=== PATIENT | male | born 1955 | race Caucasian/White ===

== ENCOUNTER 2020-05-21 14:16 | Emergency (ER) | payer OTHER ==
[~2020-05-21] VITALS: Ht 170.2 cm; Wt 102.1 kg
[2020-05-21 14:44] VITALS: BP 177/120
[2020-05-21 15:28] LABS: BASOPHILS # (AUTO) 0.1 K/uL (0.00-0.22); EOSINOPHILS # (AUTO) 0.1 K/uL (0-0.4); EOSINOPHILS % (AUTO) 2.3 % (0.0-4.0); HEMATOCRIT 41.7 % (36-52); HEMOGLOBIN 14.3 g/dL (12.0-18.0); LYMPHOCYTES # (AUTO) 1.4 K/uL (2.0-11.5); LYMPHOCYTES % (AUTO) 23.1 % (20.5-51.1); MEAN CORPUSCULAR HEMOGLOBIN 29 pg (27-31); MEAN CORPUSCULAR HGB CONC 34 g/dL (33-37); MEAN CORPUSCULAR VOLUME 83.5 fL (80-94); MONOCYTES # (AUTO) 0.4 K/uL (0.8-1.0); MONOCYTES % (AUTO) 6.9 % (1.7-9.3); NEUTROPHILS % (AUTO) 66.7 % (42.2-75.2); PLATELET COUNT (AUTO) 215 K/uL (140-450); RED BLOOD CELL COUNT(AUTO) 4.99 MIL/uL (4.20-6.10); RED CELL DISTRIBUTION WIDTH 15.2 % (11.6-13.7); WHITE BLOOD COUNT (AUTO) 5.9 K/uL (4.8-10.8)
[2020-05-21 15:46] LABS: ALBUMIN 4.4 g/dL (3.4-5.0); CARBON DIOXIDE 25.5 mmol/L (21-32); CREATININE 0.9 mg/dL (0.6-1.3); POTASSIUM 3.5 mmol/L (3.5-5.1); TOTAL BILIRUBIN 0.4 mg/dL (0.0-1.0)
[2020-05-21 15:49] LABS: PROTHROMBIN TIME 10.1 secs (10.8-13.4)
--- NOTE | 2020-05-21 19:01 | NUR ---
Patient discharged without paperwork. VSS prior to patient leaving ED
== END 2020-05-21 16:52 | disposition home or self-care (01) ==
LOC: MED 14:16
DX: I16.0 Hypertensive urgency (principal); K76.0 Fatty (change of) liver, not elsewhere classified; E78.5 Hyperlipidemia, unspecified
CPT/HCPCS: 36415; 71045; 80053; 83880; 84484; 85025; 85610; 85730; 93005; 99285

== ENCOUNTER 2020-08-07 13:11 | Inpatient (IN) | payer OTHER, SELFPAY ==
[~2020-08-07] VITALS: Ht 167.6 cm; Wt 94.8 kg
[2020-08-07 13:29] VITALS: BP 124/72
--- NOTE | 2020-08-07 13:35 | NUR ---
patient ambulated to bed 1
--- NOTE | 2020-08-07 13:45 | NUR ---
65 y/o male bib self for covid symptoms since 08/02/20. Patient states that he was tested positive since then. c/o shortness of breath and cough. Generalized body pain at this time, 6/10 in intensity. Able to speak in clear sentences. GCS15, Ambulatory with steady gait. Lung sounds are CTA in bilateral lungs PMH: HTN Medications: Losartan nkda
[2020-08-07 14:02] LABS: BASOPHILS # (AUTO) 0.1 K/uL (0.00-0.22); BASOPHILS % (AUTO) 3.6 % (0.0-2.0); EOSINOPHILS % (AUTO) 0.5 % (0.0-4.0); HEMATOCRIT 39.6 % (36-52); HEMOGLOBIN 13.6 g/dL (12.0-18.0); LYMPHOCYTES # (AUTO) 0.6 K/uL (2.0-11.5); LYMPHOCYTES % (AUTO) 23.9 % (20.5-51.1); MEAN CORPUSCULAR HEMOGLOBIN 27 pg (27-31); MEAN CORPUSCULAR HGB CONC 34 g/dL (33-37); MEAN CORPUSCULAR VOLUME 79.6 fL (80-94); MONOCYTES # (AUTO) 0.2 K/uL (0.8-1.0); MONOCYTES % (AUTO) 6.7 % (1.7-9.3); NEUTROPHILS # (AUTO) 1.6 K/uL (1.8-7.7); NEUTROPHILS % (AUTO) 65.3 % (42.2-75.2); PLATELET COUNT (AUTO) 163 K/uL (140-450); RED BLOOD CELL COUNT(AUTO) 4.98 MIL/uL (4.20-6.10); RED CELL DISTRIBUTION WIDTH 13.6 % (11.6-13.7); WHITE BLOOD COUNT (AUTO) 2.5 K/uL (4.8-10.8)
[2020-08-07 14:14] LABS: ALBUMIN 3.7 g/dL (3.4-5.0); ANION GAP 11.6 (8-16); CARBON DIOXIDE 29.5 mmol/L (21-32); POTASSIUM 3.1 mmol/L (3.5-5.1); TOTAL BILIRUBIN 0.4 mg/dL (0.0-1.0)
[2020-08-07] MEDS ORDERED: AZITHROMYCIN 500 MG in DEXTROSE 5% 250 ML IV ONE (14:20)
[2020-08-07] MEDS ORDERED: DEXAMETHASONE 10 MG/ML VIAL IVP ONE (14:20)
[2020-08-07] MEDS ORDERED: cefTRIAXone 1,000 MG VIAL ONE (14:33)
--- NOTE | 2020-08-07 14:42 | NUR ---
PT SWABBED FOR COVID AND GIVEN TO BACTERIOLOGY TECHNICIAN
[2020-08-07 14:51] LABS: PROTHROMBIN TIME 10.5 secs (10.8-13.4)
[2020-08-07] MEDS ORDERED: CEFTRIAXONE IV SCH (15:00)
[2020-08-07] MEDS ORDERED: DEXTROSE 5% IV SCH (15:00)
--- NOTE | 2020-08-07 15:00 | NUR ---
Patient appears to be resting comfortably in bed. Vital Signs within normal limits. Respirations even and unlabored.
--- NOTE | 2020-08-07 15:08 | NUR ---
CRITICAL LAB: COVID POSITIVE. DR SCHULZ MADE AWARE
[2020-08-07] MEDS ORDERED: AZITHROMYCIN 500 MG INJ VIAL IV ONE (15:13)
--- NOTE | 2020-08-07 15:24 | NUR ---
PT SATTING 89% ON RA. PT PLACED ON 3L VIA NC
[2020-08-07] MEDS ORDERED: MORPHINE SULFATE 2 MG/ML SYR IVP PRN (15:30)
[2020-08-07] MEDS ORDERED: ACETAMINOPHEN 325 MG TAB PO PRN (15:30)
[2020-08-07] MEDS ORDERED: ONDANSETRON 4 MG/2 ML VIAL IVP PRN (15:30)
[2020-08-07] MEDS ORDERED: AZITHROMYCIN 500 MG in DEXTROSE 5% 250 ML IV SCH (15:30)
[2020-08-07] MEDS ORDERED: remdesivir COMMUNICATION ORDER 1 EA MISC MC PRN (15:35)
--- NOTE | 2020-08-07 16:20 | NUR ---
PROVIDED PATIENT WITH WATER WELL URINAL FOR ELIMINATION. VSS. ALL NEEDS MET AT THIS TIME
[2020-08-07 16:32] LABS: CKMB RELATIVE INDEX 2.3 (0.0-2.5); CREATINE KINASE MB 57.9 ng/mL (0-3.6)
[2020-08-07] MEDS ORDERED: LOSA25TA43 PO (17:41)
[2020-08-07] MEDS ORDERED: remdesivir CLINICAL MONITORING 1 EA MISC MC PRN (17:45)
[2020-08-07] MEDS ORDERED: REMDESIVIR (EUA) 200 MG in NACL 0.9% 100 ML IV ONE (17:45)
--- NOTE | 2020-08-07 17:45 | NUR ---
Patient will be admitted to care of [facility]. Admited to [facility]. Will go to room 116. Belongings list completed. Report to BARB SHEPHERD.
[2020-08-07 18:00] VITALS: BP 133/63
--- NOTE | 2020-08-07 18:00 | NUR ---
PATIENT WAS TRANSFERRED TO THE ROOM 116 BY DELVIS. PATIENT AAOX4. IRISH SPEAKING, UNDERSTAND SOME VIETNAMESE. RESPIRATORY EVEN, UNLABORED WITH 3L NC. IV TO RIGHT AC 20G. ABDOMEN ROUND, DISTENDED WITH HERNIA AND FATTY LIVER, PER PATIENT. SKIN WARM TO TOUCH, DRY AND INTACT. CONTINENT WITH BOWEL AND BLADDER. V/S TAKEN, MRSA SWAB COLLECTED. ORIENTED PATIENT WITH THE HOSPITAL ENVIRONMENT, AND CALL LIGHT. SAFETY MEASURES IN PLACE, WILL CONTINUE TO MONITOR.
--- NOTE | 2020-08-07 18:35 | NUR ---
REMDESIVIR GIVEN VIA IVPB, EDUCATION PROVIDED. VERBALIZED UNDERSTANDING. ABD DISTENDED. PATIENT KEPT COMFORTABLE. WILL CONTINUE TO MONITOR.
--- NOTE | 2020-08-07 18:52 | NUR ---
INFORMED DR. HERNANDEZ REGARDING SODIUM LEVEL 128. POTASSIUM 3.1, NO PRN MEDICATIONS OR IVF ORDER. WILL WAIT FOR DR'S RESPONSE.
--- NOTE | 2020-08-07 19:30 | NUR ---
ENDORSED PATIENT TO REPAIRER HANDTOOLS RN FOR CONTINUITY OF CARE, PATIENT IN STABLE CONDITION WITH 3L NC.
[2020-08-07 20:00] VITALS: BP 130/70
--- NOTE | 2020-08-07 20:03 | NUR ---
RCV'D PT ON 2 LN. SPO2 94%. CLEAR BREATH SOUNDS. NO SOB OR DISTRESS NOTED. WILL CONTINUE TO MONITOR.
[2020-08-07] MEDS: APIXABAN 2.5 MG TAB PO SCH (23:00)
--- NOTE | 2020-08-08 | NUR ---
MADE ROUNDS , NO S/X OF ACUTE DISTRESS NOTED . WILLT. TO MONITOR.
--- NOTE | 2020-08-08 04:00 | NUR ---
O2 SAT WNL . NO S/X OF ACUTE DISTRESS NOTED . WILL CONT. TO MONITOR .
[2020-08-08 05:59] LABS: ANION GAP 13.3 (8-16); CARBON DIOXIDE 26.1 mmol/L (21-32); CREATININE 1.1 mg/dL (0.6-1.3); POTASSIUM 3.4 mmol/L (3.5-5.1)
--- NOTE | 2020-08-08 06:00 | NUR ---
NO COMPLAIN MADE . CALL LIGHT / URINAL WITHIN REACH .
[2020-08-08 06:22] LABS: HEMOGLOBIN 12.9 g/dL (12.0-18.0); MEAN CORPUSCULAR VOLUME 79.6 fL (80-94)
[2020-08-08 06:32] LABS: HEMATOCRIT 37.4 % (36-52); MEAN CORPUSCULAR HEMOGLOBIN 28 pg (27-31); MEAN CORPUSCULAR HGB CONC 35 g/dL (33-37); PLATELET COUNT (AUTO) 144 K/uL (140-450); RED BLOOD CELL COUNT(AUTO) 4.69 MIL/uL (4.20-6.10); RED CELL DISTRIBUTION WIDTH 13.6 % (11.6-13.7); WHITE BLOOD COUNT (AUTO) 3.3 K/uL (4.8-10.8)
[2020-08-08 06:33] LABS: BASOPHILS % (AUTO) 0.2 % (0.0-2.0); LYMPHOCYTES # (AUTO) 0.5 K/uL (2.0-11.5); LYMPHOCYTES % (AUTO) 15.6 % (20.5-51.1); MONOCYTES # (AUTO) 0.3 K/uL (0.8-1.0); MONOCYTES % (AUTO) 9.1 % (1.7-9.3); NEUTROPHILS # (AUTO) 2.5 K/uL (1.8-7.7); NEUTROPHILS % (AUTO) 75.1 % (42.2-75.2)
--- NOTE | 2020-08-08 07:40 | NUR ---
ENDORSED - PT - STABLE .
--- NOTE | 2020-08-08 07:42 | NUR ---
RECEIVED REPORT FROM NIGHT NURSE PT IS AAOX4, ON 3LPM NC SATURATION AT 95-96%, AMBULATORY, COMPLAINS OF CONSTIPATION, INTACT IV ON RIGHT AC SALINE LOCK, FOR RT REQUEST, CHEST XRAY RESULTED TO ATELECTASIS/PNA, STARTED ON REMDESIVIR YESTERDAY, ON CARDIAC DIET. SAFETY MEASURES IN PLACE AND CALL LIGHT WITHIN REACH. WILL CONTINUE TO MONITOR.
[2020-08-08 08:00] VITALS: BP 130/70
--- NOTE | 2020-08-08 08:32 | NUR ---
PATIENT HAS BEEN SCREENED AND CATEGORIZED MODERATE NUTRITION RISK. PATIENT WILL BE SEEN WITHIN 3-5 DAYS OF ADMISSION. 08/10/20 08/12/[address]
[2020-08-08] MEDS ORDERED: DEXAMETHASONE 4 MG/ML VIAL IVP ONE (09:00)
[2020-08-08] MEDS: APIXABAN 2.5 MG TAB PO SCH ×2 (09:09→22:26)
--- NOTE | 2020-08-08 09:09 | NUR ---
SCHEDULED MEDICATION GIVEN ABLE TO TOLERATE WELL AND CHECK VITAL SIGNS BP 133/76 AK 91.
--- NOTE | 2020-08-08 10:33 | NUR ---
PATIENT POTASSIUM LEVEL 3.4 DR HERNANDEZ AWARE AND RECEIVED ORDER OF POTASSIUM CHLORIDE 40 VANI PO ONCE.
--- NOTE | 2020-08-08 10:41 | NUR ---
SOCIAL WORK NOTE: Patient's Orientation Unable To Assess Information Provided By PIYUSH REYES - DAUGHTER Comments SW WAS UNABLE TO MEET PATIENT AT BEDSIDE. SW COMPLETED ASSESSMENT WITH PATIENT'S DAUGHTER. Star Route Mail Driver, Realtionship and Phone Number PIYUSH REYES DAUGHTER [phone] [facility] Power of Glost Kiln Operator No Does Patient Have a POLST No Identifying Problems No Social Work Triggers Is A Social Work Consult Needed No Mandate Report Filed No Explanation Of Identifying Problems PATIENT IS A 65-YEAR-OLD MALE ADMITTED FOR COVID. PATIENT HAS PMHX OF HYPERTENSION, HIGH CHOLESTEROL, AND FATTY LIVER DISEASE. PER DAUGHTER, PATIENT HAS NO HX OF MENTAL HEALTH OR SUBSTANCE ABUSE. Admitted From Home Pre-Admission Level Of Functioning Status Independent/Ambulatory Prior Resources/Services Used In Last 12 Months No Prior Resources Used Prior DME No Prior DME Used Dialysis Comments N/A Living Situation Lives With Family House Patient Had Caregiver No Home Support No Caregiver Issues Financial Issues No Known Financial Issue Referral To The Financial Counselor Needed No Factors/Needs No D/C Needs Identified Pt/Rep Participated In Discharge Plan Yes Patient/Family Agress With Discharge Plan Yes Discharge Plan Comments TENTATIVE DISCHARGE PLAN IS FOR PATIENT TO RETURN HOME. DC Plan Status Initiated
--- NOTE | 2020-08-08 10:45 | NUR ---
K DUR GIVEN AND ABLE TO TOLERATE WELL.
[2020-08-08] MEDS ORDERED: POTASSIUM CHLORIDE 10 MEQ TABER PO SCH (11:00)
--- NOTE | 2020-08-08 12:41 | NUR ---
DC CONSULTING PROJECT DIRECTOR: CALLED TO SCHEDULE PATIENT A FOLLOW UP APPOINTMENT WITH PCP CASSIE BAZZI [phone] THE LEGAL SUPPORT MANAGER STATED THAT THEY DO NOT MAKE APPOINTMENTS THEY TAKE WALK INS Addendum: 08/09/20 at 1135 by Mayela Izquierdo RN DC PLANNIN YRS OLD MALE PATIENT WAS ADMITTED FROM HOME WITH A DX OF COVID POSITIVE . PT HAS A HX OF HLD AND HYPERTENSION. CXR SHOWED BIBASILAR OMASITIS. PCR IS POSITIVE. STARTED REMDESIVIR IV ROCEPHIN AND AZITHROMYCIN IV ABX. ON O2 4L/NC SATING 96%. CONSULTED WITH ID. DC PLAN TO GO HOME WHEN STABLE CM TO FOLLOW Addendum: 08/12/20 at 1117 by Mayela Izquierdo RN DC PLANNING: PT HAS A HOME O2 ORDER FAXED TO [employer] AND [facility]. PER PT NOTES PT DE SAT TO 82% ON ACTIVITIES AND AT REST 87% ON ROOM AIR. CURRENTLY PT IS ON 10L/NC SATING 93%. CM TO FOLLOW Addendum: 08/12/20 at 1201 by Alexandre BUTCHER RANDY FAXED PHYSICIANS ORDER FOR HOME O2 TO [facility]. RANDY SPOKE TO ALISA FROM [facility] [phone]. PER ALISA SHE IS UNABLE TO PROVIDE AUTHORIZATION UNTIL SHE HAS FIRM PLAN OF DISCHARGE. PATIENT ALSO DOES NOT QUALIFY FOR HOME O2 AT THIS TIME. RANDY WILL FOLLOW UP. Addendum: 08/14/20 at 1059 by Bianca Khanna CM JENN NOLASCO: FAXED HOME 02 TO [facility] WILL FOLLOW UP. Addendum: 08/14/20 at 1108 by Bianca Khnana CM JENN NOLASCO: SPOKE TO TERRELL PICKETT FROM [facility] [phone] SHE ASKED THAT I SEND THE ORDER TO [facility] [phone]. PIYUSH PROVIDED AUTH FOR HOME OXYGEN [id number] Addendum: 08/19/20 at 1530 by Alexandre BUTCHER RANDY CONTACTED [facility] [phone] REGARDING HOME O2. RANDY SPOKE WITH LEONEL FROM [facility] REGARDING RX THAT WAS FAXED. LEONEL STATED THAT RX WAS RECEIVED AND THAT HOME O2 WOULD BE DELIVERED TO [facility]. LEONEL STATED SHE WOULD DELIVER HOME O2 TO [facility] AND CONTACT FAMILY TO DELIVER HOME O2 TO HOME. Addendum: 08/19/20 at 1535 by Alexandre Barrera SS SW SPOKE WITH LEONEL WHO STATED THAT ETA FOR HOME O2 WOULD BE DELIVERED FROM 4PM-8PM TO [facility] AND FROM 5PM-9PM TO HOME. Addendum: 08/20/20 at 1048 by Mayela Izquierdo RN DC PLANNING: PT IS ON 3L/NC SATING 93%. HOME O2 AT THE BED SIDE DELIVERED FROM [facility]. DC PLAN TO GO HOME TODAY, AWAITING FOR DC ORDER. CM TO FOLLOW
--- NOTE | 2020-08-08 15:20 | NUR ---
SCHEDULED MEDICATION GIVEN CEFTRIAXONE 50 ML AT 100 MLS.
[2020-08-08 16:00] VITALS: BP 112/60
[2020-08-08] MEDS: AZITHROMYCIN 500 MG in DEXTROSE 5% 250 ML IV SCH (16:16)
--- NOTE | 2020-08-08 17:00 | NUR ---
MEDICATION DUE GIVEN INFUSING WELL
[2020-08-08] MEDS: REMDESIVIR (EUA) 100 MG in NACL 0.9% 100 ML IV SCH (17:49)
--- NOTE | 2020-08-08 18:49 | NUR ---
RCV'D PT ON 3 L NC. PT OXYGEN WAS 88%. PT WAS EATING AND TALKING. INCREASED OXYGEN TO 4 L NC. AND SHOWED PT HOW TO TAKE DEEP BREATH FROM HIS NOSE. PT DEMONSTRATED UNDERSTANDING BREATHING EXERCISES TO INCREASE HIS SPO2. NO SOB OR DISTRESS NOTED. RN AWARE. WILL CONTINUE TO MONITOR.
--- NOTE | 2020-08-08 19:30 | NUR ---
RECEIVED REPORT AT BEDSIDE FOR CONTINUITY OF CARE, PT IN STABLE CONDITION.
--- NOTE | 2020-08-08 19:39 | NUR ---
ENDORSED TO NIGHT NURSE FOR CONTINUITY OF CARE.PT IS STABLE
--- NOTE | 2020-08-08 20:00 | NUR ---
PT IN BED AOX4 IN BED WITH 4 LITERS VIA 02. PT HAS INTERMITTENT COUGH AND LUNG SOUNDS DIMINISHED. 02 STAT IS 96% OTHER V/S FOLLOWS: T 98.1 P 79 R 18 B/P 114/69. PT HAS RAC RUNNING NORMAL SALINE TO KVO. ALL ORDERED PRECAUTIONS IN PLACE.
--- NOTE | 2020-08-08 21:00 | NUR ---
SPOKE WITH PT AND WITH PIYUSH DAUGHTER ON THE PHONE REGARDING PT CONCERNS/REQUESTS. PT SITTING UP IN BED ON 4 LITERS 02 VIA N/C. PT HAS EXTENSION FOR 02 . PT ABLE TO AMBULATE TO THE BATHROOM AND BACK WITH A STEADY GAIT. PT HAS RAC 20G. RUNNING N/S TO KVO. EDUCATION REGARDING COVID DX AND MEDICATIONS ORDERED EXPLAINED AT BEDSIDE TO PT AND DAUGHTER OVER THE PHONE. PT VERBALIZED UNDERSTANDING. PT RECEIVED ORDERED ELIQUIS PURPOSE AND SIDE EFFECTS EXPLAINED AT BEDSIDE, PT VERBALIZED UNDERSTANDING. ALL ORDERED PRECAUTIONS IN PLACE.
--- NOTE | 2020-08-08 22:30 | NUR ---
PT DAUGHTER PIYUSH CONCERNED THAT PT NOT EATING ENOUGH AND DROPPED OFF FOOD IN LOBBY FOOD WHICH WAS BROUGHT TO BEDSIDE. PT ALSO GIVEN REQUESTED ENSURE DUE TO LACK OF APPETITE.
--- NOTE | 2020-08-09 | NUR ---
PT IN BED RESTING WITH EYES CLOSED 02 IS 91% ON 4 LITERS N/C. ALL ORDERED PRECAUTIONS IN PLACE.
--- NOTE | 2020-08-09 04:00 | NUR ---
PT IN AOX4 SITTING UP. PT CONTINUES ON 4 LITERS VIA N/C. V/S FOLLOWS: T 97.9 P 68 R 20 B/P 125/75 02 90% ON ROOM AIR. ALL ORDERED PRECAUTIONS IN PLACE.
[2020-08-09 07:08] LABS: ALBUMIN 3.2 g/dL (3.4-5.0); CARBON DIOXIDE 25.5 mmol/L (21-32); POTASSIUM 3.5 mmol/L (3.5-5.1); TOTAL BILIRUBIN 0.4 mg/dL (0.0-1.0)
--- NOTE | 2020-08-09 07:37 | NUR ---
PT RECEIVED FROM MANUFACTURING ELECTRICIAN RN. PT IS SITTING ON EDGE OF BED RESTING. NO S/S OF DISTRESS AT THIS TIME. WILL CONTINUE TO MONITOR.
[2020-08-09 08:00] VITALS: BP 123/72
[2020-08-09] MEDS: APIXABAN 2.5 MG TAB PO SCH ×2 (08:46→21:31)
--- NOTE | 2020-08-09 08:50 | NUR ---
NEW IV STARTED ON LEFT AC, PT TOLERATED WELL. NO SIGNS OR SYMPTOMS OF DISTRESS. WILL CONTINUE TO MONITOR.
--- NOTE | 2020-08-09 09:20 | NUR ---
MEDICATIONS GIVEN PER MD ORDER. PT EDUCATED. PT VERBALIZED UNDERSTANDING. PT TOLERATED WELL. NO S/S OF DISTRESS AT THIS TIME. CALL LIGHT IS WITHIN REACH. ALL SAFETY MEASURES ARE IN PLACE. WILL CONTINUE TO MONITOR.
--- NOTE | 2020-08-09 09:40 | NUR ---
PT IS SITTING IN BED EATING BREAKFAST. PT TOLERATING WELL. NO S/S OF DISTRESS AT THIS TIME. CALL LIGHT IS WITHIN REACH. ALL SAFETY MEASURES ARE IN PLACE. WILL CONTINUE TO MONITOR.
--- NOTE | 2020-08-09 11:30 | NUR ---
PT AMBULATED TO RESTROOM NO S/S OF DISTRESS. PT AMBULATED BACK TO BED. PT TOLERATED WELL.
--- NOTE | 2020-08-09 13:42 | NUR ---
DAUGHTER CALLED. PT UPDATES WERE GIVEN. DAUGHTER VERBALIZED UNDERSTANDING.PT IS EATING . PT TOLERATING WELL. NO S/S OF DISTRESS AT THIS TIME. CALL LIGHT IS WITHIN REACH. ALL SAFETY MEASURES ARE IN PLACE. WILL CONTINUE TO MONITOR.
[2020-08-09] MEDS: AZITHROMYCIN 500 MG in DEXTROSE 5% 250 ML IV SCH (16:27)
--- NOTE | 2020-08-09 17:20 | NUR ---
PT RESTING IN BED WATCHING TV. MEDICATIONS GIVEN PER MD ORDER. PT EDUCATED. PT VERBALIZED UNDERSTANDING. PT TOLERATED WELL. NO S/S OF DISTRESS AT THIS TIME. CALL LIGHT IS WITHIN REACH. ALL SAFETY MEASURES ARE IN PLACE. WILL CONTINUE TO MONITOR.
[2020-08-09] MEDS: REMDESIVIR (EUA) 100 MG in NACL 0.9% 100 ML IV SCH (17:29)
--- NOTE | 2020-08-09 19:20 | NUR ---
PT ENDORSED TO OPTICAL ENGINEERING MANAGER RN FOR CONTINUITY OF CARE.
--- NOTE | 2020-08-09 19:21 | NUR ---
RECEIVED BEDSIDE ENDORSEMENT FROM AM SHIFT RN. PT IS AAOX4 ON 4L NASAL CANNULA, O2 SAT 89%-90%, AMBULATORY, SAFETY MEASURES IN PLACE, ISO PRECAUTION OBSERVED, PLAN OF CARE DISCUSSED, CALL LIGHT WITHIN REACH.
[2020-08-09 20:00] VITALS: BP 120/70
--- NOTE | 2020-08-09 21:31 | NUR ---
DUE MEDS GIVEN ORDERED, TOLERATED WELL, NO DISTRESS, NO SOB, WARM BLANKET GIVEN TO PT. KEPT COMFORTABLE. CALL LIGHT WITHIN REACH.
--- NOTE | 2020-08-10 | NUR ---
ASLEEP, RESPIRATION EVEN AND UNLABORED.
--- NOTE | 2020-08-10 02:15 | NUR ---
PT WENT TO THE RESTROOM. NO SOB, WILL CONTINUE TO MONITOR.
--- NOTE | 2020-08-10 04:30 | NUR ---
ON PRONE POSITION. NO DISTRESS, CALL LIGHT WITHIN REACH. 113/51. 91, 94%, 99.6, 20.
[2020-08-10 07:09] LABS: ALBUMIN 3.6 g/dL (3.4-5.0); ANION GAP 13.6 (8-16); CREATININE 1.2 mg/dL (0.6-1.3); POTASSIUM 3.6 mmol/L (3.5-5.1); TOTAL BILIRUBIN 0.4 mg/dL (0.0-1.0)
--- NOTE | 2020-08-10 07:36 | NUR ---
RECEIVED REPORT FROM NIGHT NURSE FOR CONTINUITY OF CARE. PT ON 4L NC. PT ASLEEP, NO SIGNS OF DISTRESS NOTED. PT HAS RAC 24G SALINE LOCK. PT ON DROPLET AND ENHANCED PRECAUTION. SAFETY MEASURES IN PLACE, WILL CONTINUE TO MONITOR.
--- NOTE | 2020-08-10 07:37 | NUR ---
PT STABLE, NO DISTRESS, ALL NEEDS ATTENDED, KEPT COMFORTABLE, BEDSIDE ENDORSEMENT GIVEN TO AM SHIFT RN.
[2020-08-10 08:00] VITALS: BP 118/69
[2020-08-10] MEDS: APIXABAN 2.5 MG TAB PO SCH ×2 (09:20→21:13)
--- NOTE | 2020-08-10 09:26 | NUR ---
ADMINISTERED SCHEDULED MEDICATION, MEDICATION EDUCATION PROVIDED. PT TOLERATED OK. INCREASED OXYGEN TO 6L AND NOTIFIED RT TO COME ASSES. WILL CONTINUE TO MONITOR
--- NOTE | 2020-08-10 11:27 | NUR ---
PT SITTING IN BED, NO SIGNS OF DISTRESS NOTED, WILL CONTINUE TO MONITOR.
--- NOTE | 2020-08-10 15:43 | NUR ---
ADMINISTERED SCHEDULED MEDICATION, MEDICATION EDUCATION PROVIDED. STARTED NEW IV LINE ON RIGHT WRIST 24G, WILL CONTINUE TO MONITOR.
[2020-08-10] MEDS ORDERED: NACL 0.9% 1,000 ML IV ONE (15:55)
[2020-08-10 16:00] VITALS: BP 110/64
[2020-08-10] MEDS: AZITHROMYCIN 500 MG in DEXTROSE 5% 250 ML IV SCH (16:18)
--- NOTE | 2020-08-10 16:21 | NUR ---
ADMINISTERED SCHEDULED MEDICATION, MEDICATION EDUCATION PROVIDED. PT TOLERATED WELL. PT IS STABLE, WILL CONTINUE TO MONITOR.
[2020-08-10] MEDS: REMDESIVIR (EUA) 100 MG in NACL 0.9% 100 ML IV SCH (17:37)
--- NOTE | 2020-08-10 17:40 | NUR ---
ADMINISTERED SCHEDULED MEDICATION, MEDICAITON EDUCATION PROVIDED. PT IS TOLERATING WELL. WILL CONTINUE TO MONITOR.
--- NOTE | 2020-08-10 18:42 | NUR ---
ADMINISTERED SCHEDULED FLUIDS, EDUCATION PROVIDED. PT TOLERATED WELL. WILL CONTINUE TO MONITOR.
--- NOTE | 2020-08-10 19:00 | NUR ---
ENDORSE PT TO NIGHT NURSE FOR CONTINUITY OF CARE.
--- NOTE | 2020-08-10 19:01 | NUR ---
RECEIVED BEDSIDE ENDORSEMENT FROM AM SHIFT RN. PT IS AOX4, ON 4L NASAL CANNULA, NO DISTRESS, DENIES PAIN, AMBULATORY W/O ASSIST. ISO PRECAUTION IN PLACE, SAFETY MEASURES IN PLACE, PLAN OF CARE DISCUSSED, CALL LIGHT WITHIN REACH.
--- NOTE | 2020-08-10 21:13 | NUR ---
PT AWAKE, SITTING ON BED, DUE MEDS GIVEN ORDERED, TOLERATED WELL, NO SOB, CALL LIGHT WITHIN REACH.
--- NOTE | 2020-08-10 23:30 | NUR ---
PT ASLEEP, RESPIRATION EVEN AND UNLABORED, PT TURNED ON HIS LEFT SIDE, CALL LIGHT WITHIN REACH.
--- NOTE | 2020-08-11 01:59 | NUR ---
PT ON HIS RIGHT SIDE LYING POSITION, O2 SAT 95%, CALL LIGHT WITHIN REACH.
--- NOTE | 2020-08-11 04:00 | NUR ---
V/S TAKEN AND RECORDED, KEPT COMFORTABLE AND WARM, CALL LIGHT WITHIN REACH.
[2020-08-11 06:48] LABS: ANION GAP 12.3 (8-16); CARBON DIOXIDE 26.1 mmol/L (21-32); CREATININE 0.9 mg/dL (0.6-1.3); POTASSIUM 3.4 mmol/L (3.5-5.1); TOTAL BILIRUBIN 0.5 mg/dL (0.0-1.0)
--- NOTE | 2020-08-11 07:09 | NUR ---
PT STABLE, NO DISTRESS, ALL NEEDS ATTENDED, KEPT COMFORTABLE, BEDSIDE ENDORSEMENT GIVEN TO AM SHIFT RN FOR CONTINUITY OF CARE.
--- NOTE | 2020-08-11 07:10 | NUR ---
RECEIVED REPORT FROM NIGHT NURSE FOR CONTINUITY OF CARE. PT ON 4L NC. PT ASLEEP, NO SIGNS OF DISTRESS NOTED. PT HAS RIGHT WRIST 24G SALINE LOCK. PT ON DROPLET AND ENHANCED PRECAUTION. SAFETY MEASURES IN PLACE, WILL CONTINUE TO MONITOR.
[2020-08-11 08:00] VITALS: BP 142/71
[2020-08-11] MEDS: APIXABAN 2.5 MG TAB PO SCH ×2 (08:34→21:15)
--- NOTE | 2020-08-11 08:41 | NUR ---
ADMINISTERED SCHEDULED MEDICATION, MEDICATION EDUCATION PROVIDED. PT TOLERATED WELL. PT IS STABLE, WILL CONTINUE TO MONITOR
[2020-08-11 09:37] LABS: ANION GAP 12.5 (8-16); CARBON DIOXIDE 27.2 mmol/L (21-32); POTASSIUM 3.7 mmol/L (3.5-5.1)
--- NOTE | 2020-08-11 11:26 | NUR ---
PT ASLEEP IN BED, NO SIGNS OF DISTRESS NOTED, OXYGEN AT 95%, WILL CONTINUE TO MONITOR.
--- NOTE | 2020-08-11 13:50 | NUR ---
PT RESTING IN BED, PT IS STABLE, WILL CONTINUE TO MONITOR.
--- NOTE | 2020-08-11 15:00 | NUR ---
PT LAYING IN BED, NO SIGNS OF DISTRESS NOTED, CALL LIGHT WITHIN REACH, WILL CONTINUE TO MONITOR.
[2020-08-11 16:00] VITALS: BP 116/68
[2020-08-11] MEDS: REMDESIVIR (EUA) 100 MG in NACL 0.9% 100 ML IV SCH (17:39)
--- NOTE | 2020-08-11 17:44 | NUR ---
ADMINISTERED SCHEDULED MEDICATION, MEDICATION EDUCATION PROVIDED. PT TOLERATED WELL. PT IS STABLE, WILL CONTINUE TO MONITOR.
--- NOTE | 2020-08-11 19:25 | NUR ---
ENDORSE PT TO NIGHT NURSE FOR CONTINUITY OF CARE.
--- NOTE | 2020-08-11 19:26 | NUR ---
RECEIVING PATIENT FROM AM NURSE FOR CONTINUITY OF CARE. PATIENT IS SLOVENIAN SPEAKER, A/A/O X4. RESPIRATORY EVEN AND UNLABORED, ON 15L HIGH FLOW NASAL CANULA, O2 SAT 92-94%. SKIN WARM, DRY, NON-DIAPHORETIC, IV ON RIGHT WRIST 24G SALINE LOCK. PATIENT ABLE TO MAKE NEED KNOWN, DENIES ANY PAIN OR DISCOMFORT AT THIS TIME. CARE OF PLAN DISCUSSED, PATIENT VERBALIZED UNDERSTANDING. PRECAUTION IN PLACE. CALL LIGHT WITHIN REACH. WILL CONTINUE TO MONITOR.
--- NOTE | 2020-08-11 19:39 | NUR ---
PT DENIES SOB SPO2 95% ON 13LNC (HF) HR 85 f20. PT COMFORTABLY WATCHING TV IN SEMI-FOWLERS. WILL CONTINUE TOP MONITOR
[2020-08-11 20:00] VITALS: BP 131/72
--- NOTE | 2020-08-11 21:15 | NUR ---
MEDICATION GIVEN ORDERED. PATIENT TOLERATED WELL. NO SIGN OF DISTRESS NOTED. HOB ELEVATED. CALL LIGHT WITHIN REACH. WILL CONTINUE TO MONITOR.
--- NOTE | 2020-08-11 22:00 | NUR ---
ROUND CHECK. PATIENT IS SLEEPING, NO SIGN OF DISTRESS NOTED, O2 SAT 93%. CALL LIGHT WITHIN REACH. HOB ELEVATED. WILL CONTINUE TO MONITOR.
--- NOTE | 2020-08-12 | NUR ---
ROUND CHECK. PATIENT IS SLEEPING. CHEST RISE AND FALL NOTED. HOB ELEVATED. PRECAUTION IN PLACE. CALL LIGHT WITHIN REACH. WILL CONTINUE TO MONITOR.
--- NOTE | 2020-08-12 02:00 | NUR ---
PATIENT SEEN SITTING UP ON THE SIDE OF BED, NO SIGN OF DISTRESS NOTED, O2 SAT 95%. CALL LIGHT WITHIN REACH. WILL CONTINUE TO MONITOR.
--- NOTE | 2020-08-12 02:49 | NUR ---
PATIENT COMPLAINS OF FEELING NAUSEOUS. PATIENT ALSO REPORT HX OF PEPCID ULCER FOR AWHILE, HAS DONE COLONOSCOPY 2 YEARS AGO. DENIES ANY VOMIT AT THIS TIME. PRN MEDICATION GIVEN ORDER. PATIENT TOLERATED WELL. WILL CONTINUE TO MONITOR.
[2020-08-12 04:00] VITALS: BP 125/70
--- NOTE | 2020-08-12 06:32 | NUR ---
PATIENT IS RESTING IN BED, NO SIGN OF DISTRESS NOTED, O2 SAT 93%. PATIENT REQUESTS NO FOOD IN ROOM, IT MAKES HIM FEEL NAUSEOUS. WILL ENDORSE TO DAY NURSE. HOB ELEVATED. CALL LIGHT WITHIN REACH. PRECAUTION IN PLACE. WILL CONTINUE TO MONITOR.
[2020-08-12 07:09] LABS: ALBUMIN 2.9 g/dL (3.4-5.0); ANION GAP 12.1 (8-16); CARBON DIOXIDE 28.6 mmol/L (21-32); POTASSIUM 3.7 mmol/L (3.5-5.1); TOTAL BILIRUBIN 0.7 mg/dL (0.0-1.0)
--- NOTE | 2020-08-12 07:15 | NUR ---
ENDORSED PATIENT TO DAY NURSE FOR CONTINUITY OF CARE. PATIENT IS SLEEPING. NO SIGN OF RESPIRATORY DISTRESS NOTED. PATIENT IS STABLE.
--- NOTE | 2020-08-12 07:20 | NUR ---
RECEIVED BEDSIDE ENDORSEMENT FROM NIGHTSMEFT NURSE FOR CONTINUITY OF CARE.
--- NOTE | 2020-08-12 08:45 | NUR ---
LOC AWAKE AND ALERT SATURATION 95% ON SUPPLEMENTAL OXYGEN AT 12 LPM VIA HIGH FLOW BUBBLE HUMIDIFIER PATIENT PRESENTING WITH STRONG COUGH EPISODE WITH SATURATION DESCENDING TO 90% POST COUGHING EPISODE SATURATION ASCENDING TO 94%-95% TITRATED FIO2 TO 10 LPM ARCENIO/RN NOTIFIED
[2020-08-12] MEDS: DEXAMETHASONE 4 MG/ML VIAL IM SCH (09:09)
[2020-08-12] MEDS: APIXABAN 2.5 MG TAB PO SCH ×2 (09:11→21:05)
--- NOTE | 2020-08-12 09:18 | NUR ---
ADMINISTERED PRESCRIBED MEDS PER MD ORDER. PATIENT TOLERATED WELL. MEDICATION EDUCATION REINFORCEMENT NEEDED DUE TO LANGUAGE BARRIER. PATIENT SEEN BY RT, O2 TITRATED FROM 12L HIGHFLOW TO 10L HIGHFLOW. PATIENT TOLERATING WELL W/ SPO2 93%. PATIENT DENIES PAIN, SHOWS NO SIGNS OF DISTRESS W/ RESPIRATIONS EVEN AND UNLABORED. SAFETY MEASURES IN PLACE. WILL CONTINUE TO MONITOR.
--- NOTE | 2020-08-12 12:30 | NUR ---
HOURLY ROUNDING PROVIDED. PATIENT SLEEPING, SPO2 95% W/ RESPIRATIONS EVEN AND UNLABORED. PATIENT SHOWS NO SIGNS OF DISTRESS. SAFETY MEASURES IN PLACE. WILL CONTINUE TO MONITOR
--- NOTE | 2020-08-12 14:09 | NUR ---
08/12/20 RD INITIAL ASSESSMENT COMPLETED PLEASE REFER TO NUTRITION ASSESSMENT UNDER CARE ACTIVITY FOR ESTIMATED NUTRITIONAL NEEDS. 1. CONTINUE CARDIAC DIET TOLERATED 2. CONTINUE ENSURE BID 3. RD PROVIDED COVID-19 NUTRITION EDUCATION. PT ACCEPTED 4. RD TO FOLLOW-UP 3-5 DAYS, MODERATE RISK KESHAWN WORLEY RD
[2020-08-12 16:00] VITALS: BP 122/70
--- NOTE | 2020-08-12 16:00 | NUR ---
HOURLY ROUNDING PERFORMED. PATIENT AT WINDOW VISIT W/ FAMILY. V/S OBTAINED. PATIENT SITTING UPRIGHT IN BED. SHOWS NO SIGNS OF DISTRESS. SAFETY MEASURES IN PLACE. WILL CONTINUE TO MONITOR.
--- NOTE | 2020-08-12 19:36 | NUR ---
PATIENT ENDORSED TO NIGHTSHIFT NURSE FOR CONTINUITY OF CARE.
[2020-08-13] VITALS: BP 122/77
--- NOTE | 2020-08-13 | NUR ---
MADE ROUNDS , NO S/X OF ACUTE DISTRESS NOTED . WILL CONT. TO MONITOR . CALL LIGHT WITHIN REACH .
--- NOTE | 2020-08-13 04:00 | NUR ---
O2 SAT WNL . NO S/X OF ACUTE DISTRESS NOTED
--- NOTE | 2020-08-13 06:00 | NUR ---
MADE ROUNDS , NO S/SX OF DISTRESS
--- NOTE | 2020-08-13 07:43 | NUR ---
ENDORSED - PT - STABLE .
--- NOTE | 2020-08-13 07:45 | NUR ---
RECEIVED PATIENT FROM NIGHT NURSE. PATIENT SITTING UP IN BED AWAKE AND ALERT. RESP EVEN AND UNLABORED ON 10L HIGH FLOW NC, O2SAT 94%. PT AT BEDSIDE FOR THERAPY. RW 20G TKO. PLAN OF CARE DISCUSSED. PATIENT VERBALIZED UNDERSTANDING. DROPLET PRECAUTION IN PLACE. CALL LIGHT WITHIN REACH. WILL CONTINUE TO MONITOR.
[2020-08-13 08:00] VITALS: BP 100/64
[2020-08-13] MEDS: APIXABAN 2.5 MG TAB PO SCH ×2 (09:34→21:22)
[2020-08-13] MEDS: DEXAMETHASONE 4 MG/ML VIAL IM SCH (09:38)
--- NOTE | 2020-08-13 09:55 | NUR ---
PATIENT SITTING UP BY BEDSIDE TALKING TO FAMILY. RESP EVEN AND UNLABORED ON HUMIDIFIED 9L NC. DENIED OF PAIN AT THIS TIME. NO ACUTE S/S DISTRESS. MORNING ROUTINE MEDICATIONS GIVEN. PATIENT TOLERATED WELL. PATIENT TOLERATED WELL WITH PT SESSION, O2SAT >90% DURING AMBULATION ON 9L. PLAN OF CARE DISCUSSED, PATIENT VERBALIZED UNDERSTANDING. CALL LIGHT WITHIN REACH. WILL CONTINUE TO MONITOR.
--- NOTE | 2020-08-13 10:13 | NUR ---
DECREASED FIO2 TO 7LNC AND O2SAT IS 88% PT IS SITING UP IN BED AT 1028 CHECKED ON PT AND O2 SAT IS 83% WITH PT SITTING UP IN BED, PLACED PT BACK ON THE 9LNC AND INFORMED CORA MARI .
[2020-08-13 11:40] LABS: BASOPHILS # (AUTO) 0.1 K/uL (0.00-0.22); BASOPHILS % (AUTO) 0.4 % (0.0-2.0); EOSINOPHILS # (AUTO) 0.1 K/uL (0-0.4); EOSINOPHILS % (AUTO) 0.6 % (0.0-4.0); HEMATOCRIT 35.5 % (36-52); LYMPHOCYTES # (AUTO) 0.4 K/uL (2.0-11.5); LYMPHOCYTES % (AUTO) 3.1 % (20.5-51.1); MEAN CORPUSCULAR HEMOGLOBIN 27 pg (27-31); MEAN CORPUSCULAR HGB CONC 34 g/dL (33-37); MEAN CORPUSCULAR VOLUME 80.2 fL (80-94); MONOCYTES # (AUTO) 0.3 K/uL (0.8-1.0); MONOCYTES % (AUTO) 2.6 % (1.7-9.3); NEUTROPHILS # (AUTO) 10.8 K/uL (1.8-7.7); NEUTROPHILS % (AUTO) 93.3 % (42.2-75.2); PLATELET COUNT (AUTO) 249 K/uL (140-450); RED BLOOD CELL COUNT(AUTO) 4.42 MIL/uL (4.20-6.10); RED CELL DISTRIBUTION WIDTH 14.1 % (11.6-13.7); WHITE BLOOD COUNT (AUTO) 11.6 K/uL (4.8-10.8)
--- NOTE | 2020-08-13 12:25 | NUR ---
PATIENT SITTING BY BEDSIDE USING CELL PHONE. O2SAT 94% AT REST ON 8L NC HUMIDIFIED. NO NOTED DISTRESS. PATIENT ABLE TO MAKE NEEDS KNOWN. CALL LIGHT WITHIN REACH. WILL CONTINUE TO MONITOR.
--- NOTE | 2020-08-13 14:35 | NUR ---
PATIENT IN BED SLEEPING, CHEST NOTED RISING. NO NOTED ACUTE S/S DISTRESS. CALL LIGHT WITHIN REACH. WILL CONTINUE TO MONITOR.
[2020-08-13 15:17] LABS: ANION GAP 17.4 (8-16); CARBON DIOXIDE 24.3 mmol/L (21-32); CREATININE 1.1 mg/dL (0.6-1.3); POTASSIUM 3.7 mmol/L (3.5-5.1)
[2020-08-13 16:00] VITALS: BP 125/49
--- NOTE | 2020-08-13 17:35 | NUR ---
PATIENT SITTING BY BEDSIDE EATING FOOD BROUGHT IN BY FAMILY. O2SAT 94% ON 8L NC HUMIDIFIED. DENIED OF PAIN. NO NOTED DISTRESS AT THIS TIME. PATIENT ABLE TO MAKE NEEDS KNOWN. CALL LIGHT WITHIN REACH. WILL CONTINUE TO MONITOR.
--- NOTE | 2020-08-13 19:23 | NUR ---
ENDORSED PATIENT TO NIGHT NURSE. PATIENT IN STABLE CONDITION.
[2020-08-14] VITALS: BP 122/65
--- NOTE | 2020-08-14 | NUR ---
MADE ROUNDS , NO S/SX OF ACUTE DISTRESS NOTED .
--- NOTE | 2020-08-14 04:00 | NUR ---
O2 SAT 9 4 % - NO S/SX OF ACUTE DISTRESS NOTED . WILL CONT. TO MONITOR .
--- NOTE | 2020-08-14 07:20 | NUR ---
ENDORSED - PT - STABLE .
--- NOTE | 2020-08-14 07:22 | NUR ---
REC'D REPORT FROM SCALE ADJUSTER NURSE, PT ON 8L HIGH FLOW NC, A/OX4 [place] SPEAKER, R.ARM 24 G SL, CALL LIGHT WITHIN REACH. NO SIGN OF RESP DISTRESS, PT CAN MAKE NEEDS KNOWN. WILL CONTINUE TO MONITOR
[2020-08-14 08:00] VITALS: BP 125/74
[2020-08-14] MEDS: DEXAMETHASONE 4 MG/ML VIAL IM SCH (08:55)
[2020-08-14] MEDS: APIXABAN 2.5 MG TAB PO SCH ×2 (08:57→20:16)
--- NOTE | 2020-08-14 09:00 | NUR ---
ADMINISTERED MEDICATIONS PER MD ORDER, DISCUSSED MOA AND SIDE EFFECTS, IV SITE PATENT, FLUSHED PRIOR AND AFTER IV MEDICATION ADMINISTRATION. PT VERBALLY UNDERSTOOD.
--- NOTE | 2020-08-14 09:15 | NUR ---
PER PHYSICAL THERAPIST, PT OXYGEN SATURATION DECREASED TO 85 WHEN AMBULATING AND DID NOT IMPROVE ONCE SITTING AT BED, INCREASED TO 10L/HR TO STABILIZE, WILL CONTINUE TO MONITOR
--- NOTE | 2020-08-14 09:28 | NUR ---
OXYGEN SATURATION AT 85%, INCREASED TO 11L/HR, WILL CONTINUE TO MONITOR. CURRENTLY AT 89%, WILL CONTINUE TO MONITOR.
--- NOTE | 2020-08-14 10:03 | NUR ---
PT CURRENT OXYGEN SATURATION AT 94% WILL CONTINUE WITH CURRENT OXYGEN FLOW. PT STABLE ON PHONE WITH FAMILY. NO SIGN OF DISTRESS
--- NOTE | 2020-08-14 12:21 | NUR ---
OXYGEN SATURATION CURRENTLY 94%, NO SIGN OF DISTRESS, PT COMFORTABLY SITTING UP, PHYSICAL THERAPIST AT BEDSIDE. WILL CONTINUE TO MONITOR
--- NOTE | 2020-08-14 13:42 | NUR ---
ATTEMPTD TO DECREASE FIO2 TO 6LPM PT DESAT PT NEEDS 8 T0 10 LPM OXYGEN TO KEEP SATYRATED RN AWARE
--- NOTE | 2020-08-14 14:39 | NUR ---
PT RESTING, WATCHING TV .NO SIGN OF DISTRESS.
[2020-08-14 16:00] VITALS: BP 120/70
--- NOTE | 2020-08-14 18:25 | NUR ---
PT STABLE, OXYGEN SATURATION OF 92% ON 11L HUMIDIFIED NC. NO SIGN OF DISTRESS.
--- NOTE | 2020-08-14 19:17 | NUR ---
RECEIVED BEDSIDE REPORT FROM DAY RN. PT IS AAOX4 [place]ZILIAN SPEAKING ABLE TO MAKE NEEDS KNOWN. PT SITTING UP IN BED WATCHING TV. RESPIRATIONS ARE EQUAL AND UNLABORED ON 11L SAT WELL 92%. IV ON R W 24G TKO. SKIN IS INTACT. PT ON CONTACT/DROPLET ISOLATION FOR COVID +. POC DISCUSSED WITH PT. CALL LIGHT IS WITHIN REACH.
--- NOTE | 2020-08-14 19:26 | NUR ---
ENDORSED PT TO BEHAVIORAL PEDIATRICIAN NURSE, PT ON PHONE ,STABLE, NO SIGN OF DISTRESS.
[2020-08-14 20:00] VITALS: BP 127/72
--- NOTE | 2020-08-14 20:16 | NUR ---
VITAL SIGNS ARE STABLE. PT ABLE TO DEMONSTRATE AND RETURN DEMO USING IS. DWIGHT MEDICATION GIVEN PER ORDER. PT TOLERATED WELL. MED EDUCATION GIVEN. PT REMAINS ON 11L VIA H FLOW. SAT WELL 90% NO S/S OF RESPIRATORY DISTRESS. ALL NEEDS MET. WILL CONTINUE TO MONITOR.
--- NOTE | 2020-08-14 22:00 | NUR ---
ROUNDS MADE. PT RESTING IN BED WATCHING TV. NO S/S OF DISTRESS. ALL NEEDS MET. CALL LIGHT IS WITHIN REACH.
--- NOTE | 2020-08-15 00:18 | NUR ---
ROUNDS MADE. PT IS RESTING COMFORTABLY IN BED WATCHING TV. NO S/S OF DISTRESS. CALL LIGHT IS WITHIN REACH.
--- NOTE | 2020-08-15 02:07 | NUR ---
MADE ROUNDS. PT SAT 84-87% PT STATES JUST CAME BACK FROM USING THE BATHROOM. O2 SLOWLY GOING UP. NO S/S OF DISTRESS. CALL LIGHT IS WITHIN REACH. WILL CONTINUE TO MONITOR.
[2020-08-15 04:00] VITALS: BP 120/82
--- NOTE | 2020-08-15 04:00 | NUR ---
VITAL SIGNS ARE WITHIN NORMAL LIMITS. ALL SAFETY MEASURES ARE IN PLACE. WILL CONTINUE TO MONITOR.
--- NOTE | 2020-08-15 07:17 | NUR ---
GAVE BEDSIDE REPORT TO DAY RN. PT ENDORSED IN STABLE CONDITION.
--- NOTE | 2020-08-15 07:25 | NUR ---
PT RECEIVED FROM JAVA SECURITY ENGINEER RN. PT RESTING IN BED AWAKE . NO S/S OF DISTRESS. ON 10 L 93% . IV ON RIGHT ARM IS DRY PATENT ANC CLEAN. ALL SAFETY MEASURES ARE IN PLACE WILL CONTINUE TO MONITOR.
[2020-08-15 08:00] VITALS: BP 116/69
[2020-08-15] MEDS: DEXAMETHASONE 4 MG/ML VIAL IM SCH ×2 (08:49→09:06)
[2020-08-15] MEDS: APIXABAN 2.5 MG TAB PO SCH (08:50)
--- NOTE | 2020-08-15 08:59 | NUR ---
MEDICATIONS GIVEN PER MD ORDER. PT EDUCATED. PT VERBALIZED UNDERSTANDING. PT TOLERATED WELL. NO SIGNS OR SYMPTOMS OF DISTRESS AT THIS TIME.CALL LIGHT IS WITHIN REACH . ALL SAFETY MEASURES ARE IN PLACE WILL CONTINUE TO MONITOR.
--- NOTE | 2020-08-15 09:05 | NUR ---
PT IS ON 13 L HIGH FLOW NC AT 84% SAT. RT NOTIFIED. NO S/S OF DISTRESS WILL CONTINUE TO MONITOR.
--- NOTE | 2020-08-15 10:39 | NUR ---
SPOKE TO DAUGHTER. UPDATED ON CARE AND PLAN. FAMILY VERBALIZED UNDERSTANDING. PT HAS NO SIGNS OR SYMPTOMS OF DISTRESS AT THIS TIME.CALL LIGHT IS WITHIN REACH. ALL SAFETY MEASURES ARE IN PLACE WILL CONTINUE TO MONITOR.
--- NOTE | 2020-08-15 12:21 | NUR ---
PT ENCOURAGE TO USE INCENTIVE SPIROMETER. PT VERBALIZED UNDERSTANDING. PT IS RESTING ON HIS SIDE 93% ON 12L. NC. PT TOLERATING WELL ENCOURAGED TO GO PRONE IF HIS SATURATION FALLS. NO SIGNS OR SYMPTOMS OF DISTRESS AT THIS TIME.CALL LIGHT IS WITHIN REACH . ALL SAFETY MEASURES ARE IN PLACE WILL CONTINUE TO MONITOR.
--- NOTE | 2020-08-15 14:00 | NUR ---
PT RESTING IN BED ON SIDE. PT SPEAKING TO FAMILY. NOS/S OF DISTRESS AT THIS TIME . DENIES PAIN
--- NOTE | 2020-08-15 15:08 | NUR ---
PT SITTING ON CHAIR. PT REQUEST PUDDING. AND WATER. PT GIVEN BOTH.NO SIGNS OR SYMPTOMS OF DISTRESS AT THIS TIME.CALL LIGHT IS WITHIN REACH . ALL SAFETY MEASURES ARE IN PLACE WILL CONTINUE TO MONITOR. 86% ON 13-L NC
[2020-08-15 16:00] VITALS: BP 135/77
--- NOTE | 2020-08-15 16:55 | NUR ---
FAMILY BROUGHT FOOD. PT TOLERATED WELL.NO SIGNS OR SYMPTOMS OF DISTRESS AT THIS TIME.CALL LIGHT IS WITHIN REACH . ALL SAFETY MEASURES ARE IN PLACE WILL CONTINUE TO MONITOR.
--- NOTE | 2020-08-15 18:19 | NUR ---
PT IS RESTING PRONE IN BED AT 93%. NO SIGNS OR SYMPTOMS OF DISTRESS AT THIS TIME.CALL LIGHT IS WITHIN REACH . ALL SAFETY MEASURES ARE IN PLACE WILL CONTINUE TO MONITOR.
--- NOTE | 2020-08-15 18:40 | NUR ---
PT IS ON 9-L HIGH IAN BUBBLE MASK. 94% . NO SIGNS OR SYMPTOMS OF DISTRESS AT THIS TIME.CALL LIGHT IS WITHIN REACH . ALL SAFETY MEASURES ARE IN PLACE WILL ENDORSE TO CARD PLAYER RN FOR CONTINUITY OF CARE
--- NOTE | 2020-08-15 19:41 | NUR ---
PT ENDORSED TO MATLAB DEVELOPER RN FOR CONTINUITY OF CARE
--- NOTE | 2020-08-15 20:00 | NUR ---
PATIENT WAS RECEIVED IN BED AWAKE AND COHERENT ABLE TO SPEAK NEEDS, ON BUBBLE NASAL CANULA AT 9 LPM.
--- NOTE | 2020-08-15 20:00 | NUR ---
PATIENT WAS RECEIVED IN BED AWAKE AND COHERENT ABLE TO SPEAK NEEDS,
--- NOTE | 2020-08-15 20:35 | NUR ---
RECEIVED PT FROM AM SHIFT. PT SEEN AND ASSESSED. FOUND PT ON 9L HIGH FLOW BUBBLE HUMIDIFIER. PT WAS ASSISTED INTO PRONE POSITION AND PT TOLERATED PROCEDURE WELL. SPO2 9%. PT IS IN NO APPARENT RESPIRATORY DISTRESS AT THIS TIME. RN NOTIFIED. WILL CONTINUE TO MONITOR PT.
--- NOTE | 2020-08-15 22:00 | NUR ---
RN RECEIVED REPORT THAT THE PATIENT'S NOSE WAS BLEEDING, RN STONER TO THE ROOM INSTRUCTED THE PATIENT TO LEAN FORWARD AND PUT PRESSURE AT THE BASE OF THE NOSE, ICE COMPRESS WAS APPLIED, BLEEDING WAS ARRESTED, WILL CONTINUE TO MONITOR,
--- NOTE | 2020-08-16 | NUR ---
RN MADE HIS MIDNIGHT ROUND, PATIENT WAS OBSERVED IN PRONE POSITION OXYGEN LEVEL OF 94%, WITH NORMAL, REGULAR BREATHING PATTERN, NO SINGS OF ACTIVE BLEEDING IN THE NOSE.
--- NOTE | 2020-08-16 02:00 | NUR ---
RN MADE ANOTHER ROUND, PATIENT WAS CALMLY ASLEEP, NO SIGNS AND SYMPTOMS OF DISTRESS/ACTIVE BLEEDING.
--- NOTE | 2020-08-16 04:00 | NUR ---
RN MADE ANOTHER ROUND, PATIENT WAS CALMLY ASLEEP, NO SIGNS AND SYMPTOMS OF DISTRESS/ACTIVE BLEEDING.
[2020-08-16 06:00] VITALS: BP 129/88
--- NOTE | 2020-08-16 07:05 | NUR ---
RECEIVED REPORT FROM NIGHT NURSE FOR CONTINUITY OF CARE. PT ASLEEP. PT PRONING. OXYGEN SATURATION AT 94%. PT ON 9L NC BUBBLE. SKIN INTACT. RIGHT WRIST 24 SL[address] SAFETY MEASURES IN PLACE, WILL CONTINUE TO MONITOR.
[2020-08-16 08:00] VITALS: BP 120/68
--- NOTE | 2020-08-16 08:31 | NUR ---
REPORT GIVEN TO INCOMING RN, ENDORSED
[2020-08-16] MEDS: DEXAMETHASONE 4 MG/ML VIAL IM SCH (08:52)
--- NOTE | 2020-08-16 09:01 | NUR ---
ADMINISTERED SCHEDULED MEDICATION, MEDICATION EDUCATION PROVIDED. PT TOLERATED WELL. PT IS STABLE SITTING BY WINDOW EATING BREAKFAST. PT OXYGEN SATURATION IS 87. WILL CONTINUE TO MONITOR.
--- NOTE | 2020-08-16 11:42 | NUR ---
NOTIFIED DR BASILIO PT STATES HE HAS COUGHED UP BLOODY MUCUS. 5 BLOOD CLOTS. BP 125/76, HR 101. WILL CONTINUE TO MONITOR.
[2020-08-16] MEDS ORDERED: guaiFENesin/CODEINE 100/10MG 5 ML UDC PO PRN (11:55)
--- NOTE | 2020-08-16 11:56 | NUR ---
RECEIVED TORB FROM DR BASILIO FOR CT CHEST W/O CONTRAST. ROBITUSSIN WITH CODEINE 5ML PRN Q4H COUGH. WILL INPUT ORDER AND CARRY IT OUT
--- NOTE | 2020-08-16 14:19 | NUR ---
08/16/20 RD FOLLOW UP COMPLETED PLEASE REFER TO NUTRITION ASSESSMENT UNDER CARE ACTIVITY FOR ESTIMATED NUTRITIONAL NEEDS. 1. CONTINUE CARDIAC DIET TOLERATED 2. CONTINUE ENSURE TID 3. RD PROVIDED COVID-19 NUTRITION EDUCATION. PT ACCEPTED 4. ADD VITAMIN C AND ZINC SUPPLEMENTATION PER DR. LOVING NOTES 5. RD TO FOLLOW-UP 3-5 DAYS, MODERATE RISK KESHAWN WORLEY, RD
--- NOTE | 2020-08-16 14:56 | NUR ---
PT SITTING BY WINDOW. PT IS STABLE, WILL CONTINUE TO MONITOR.
[2020-08-16 16:00] VITALS: BP 123/74
--- NOTE | 2020-08-16 16:58 | NUR ---
ADMINISTERED ROBITUSSIN WITH CODEINE FOR COUGH, MEDICATION EDUCATION PROVIDED. PT TOLERATED WELL. PT IS STABLE, WILL CONTINUE TO MONITOR.
--- NOTE | 2020-08-16 19:05 | NUR ---
ENDORSE PT TO NIGHT NURSE FOR CONTINUITY OF CARE
--- NOTE | 2020-08-16 19:05 | NUR ---
RECEIVED PATIENT FROM AM SHIFT NURSE FOR CONTINUITY OF CARE. ALERT AND ABLE TO MAKE NEEDS KNOWN. RESPIRATIONS EVEN, UNLABORED. CONTINUES ON O2 9L VIA NC BUBBLE WITH HUMIDIFIER. O2SAT 96%. SKIN WARM, DRY. IV SITE NOTED TO WRIST WRIST 20G PATENT/INTACT. NO C/O PAIN. NO S/S ACUTE DISTRESS. ABDOMEN SOFT, NONTENDER, NONDISTENDED. BOWEL SOUNDS ACTIVE X4 QUADRANTS. PATIENT IS CONTINENT OF B/B. PLAN OF CARE DISCUSSED. SAFETY PRECAUTIONS IN PLACE. ISOLATION PRECAUTIONS OBSERVED BY ALL STAFF. CALL LIGHT WITHIN REACH AT ALL TIMES.
--- NOTE | 2020-08-16 21:49 | NUR ---
PATIENT RESTING COMFORTABLY IN BED. NO S/S ACUTE DISTRESS. NO C/O PAIN. CALL LIGHT WITHIN REACH. SAFETY PRECAUTIONS IN PLACE. ISOLATION PRECAUTIONS OBSERVED.
--- NOTE | 2020-08-16 23:36 | NUR ---
ENCOURAGED PRONE POSITION TOLERATED. PATIENT VERBALIZED UNDERSTANDING BUT NEEDS REINFORCEMENT. NO C/O PAIN. NO S/S ACUTE DISTRESS. SAFETY PRECAUTIONS IN PLACE. ISOLATION PRECAUTIONS OBSERVED. CALL LIGHT WITHIN REACH.
[2020-08-17] VITALS: BP 125/78
--- NOTE | 2020-08-17 01:21 | NUR ---
MADE ROUNDS. PATIENT IS ASLEEP. NO S/S ACUTE DISTRESS. SAFETY PRECAUTIONS IN PLACE. ISOLATION PRECAUTIONS OBSERVED. BY ALL STAFF. CALL LIGHT WITHIN REACH.
--- NOTE | 2020-08-17 03:12 | NUR ---
PATIENT IS ASLEEP. NO S/S ACUTE DISTRESS. SAFETY PRECAUTIONS IN PLACE. CALL LIGHT WITHIN REACH.
--- NOTE | 2020-08-17 05:12 | NUR ---
PATIENT HAS AN O2SAT 89%. CONTINUES ON O2 9L VIA NC BUBBLE WITH HUMIDIFIER. ENCOURAGED PATIENT TO PRONE TOLERATED. PATIENT VERBALIZED UNDERSTANDING BUT NEEDS REINFORCEMENT. NO S/S RESPIRATORY DISTRESS. NO C/O PAIN. NO S/S ACUTE DISTRESS. SAFETY PRECAUTIONS IN PLACE. ISOLATION PRECAUTIONS OBSERVED BY ALL STAFF. CALL LIGHT WITHIN REACH.
--- NOTE | 2020-08-17 07:19 | NUR ---
ENDORSED PATIENT TO AM SHIFT NURSE FOR CONTINUITY OF CARE.
--- NOTE | 2020-08-17 07:20 | NUR ---
RECEIVED BEDSIDE ENDORSEMENT FROM NIGHTSWVFT NURSE FOR CONTINUITY OF CARE.
[2020-08-17 08:00] VITALS: BP 117/78
[2020-08-17] MEDS: DEXAMETHASONE 4 MG/ML VIAL IM SCH (08:06)
--- NOTE | 2020-08-17 08:14 | NUR ---
ADMINISTERED PRESCRIBED MEDS PER MD ORDER. PATIENT TOLERATED WELL. MEDICATION EDUCATION REINFORCEMENT NEEDED DUE TO LANGUAGE BARRIER. PATIENT SITTING UPRIGHT IN BED. JUST COMPLETED AM SELF CARE AND ORAL CARE. PATIENT DENIES PAIN. SPO2 85% ON 9L NC, MOVED UP TO 10L FOR OXYGENATION IMPROVEMENT. SAFETY MEASURES IN PLACE. WILL CONTINUE TO MONITOR.
--- NOTE | 2020-08-17 09:05 | NUR ---
PATIENT SPO2 90% AT 10L NC W/ HUMIDIFIER.
--- NOTE | 2020-08-17 10:35 | NUR ---
RECEIVED CALL FROM PATIENT DAUGHTER MD PIYUSH AT BEDSIDE AND TOOK CALL. ENCOURAGED PATIENT TO SELF PRONE OR SIDE LAY WHEN IN BED. PATIENT IS CURRENTLY IN PRONE POSITION SPO2 88% ON 10L NC. SAFETY MEASURES IN PLACE. WILL CONTINUE TO MONITOR.
--- NOTE | 2020-08-17 14:16 | NUR ---
HOURLY ROUNDING PERFORMED. PATIENT LYING PRONE IN BED TALKING ON CELL PHONE. PATIENT ABLE TO MAKE NEEDS KNOWN. PROVIDED FRESH WATER PER REQUEST. PATIENT DENIES PAIN. SPO2 90%. SAFETY MEASURES IN PLACE. WILL CONTINUE TO MONITOR.
[2020-08-17 16:00] VITALS: BP 117/66
--- NOTE | 2020-08-17 16:51 | NUR ---
HOURLY ROUNDING PERFORMED. PATIENT SITTING UPRIGHT IN BED, TALKING ON CELL PHONE. PATIENT SPO2 89% 10L NC. PATIENT IS ENCOURAGED TO SELF PRONE WHEN LYING DOWN. PATIENT VERBALIZED UNDERSTANDING. PATIENT DENIES PAIN AND SHOWS NO SIGNS OF DISTRESS. SAFETY MEASURES IN PLACE. WILL CONTINUE TO MONITOR.
--- NOTE | 2020-08-17 19:25 | NUR ---
PATIENT ENDORSED TO NIGHTSHIFT NURSE FOR CONTINUITY OF CARE.
--- NOTE | 2020-08-17 19:25 | NUR ---
RECEIVED PATIENT FROM AM SHIFT NURSE FOR CONTINUITY OF CARE. ALERT AND ABLE TO MAKE NEEDS KNOWN. RESPIRATIONS EVEN, UNLABORED. CONTINUES ON O2 10L VIA NC BUBBLE WITH HUMIDIFIER. O2SAT 95%. SKIN WARM, DRY. SALINE LOCK TO WRIST WRIST 20G PATENT/INTACT. NO C/O PAIN. NO S/S ACUTE DISTRESS. ABDOMEN SOFT, NONTENDER, NONDISTENDED. BOWEL SOUNDS ACTIVE X4 QUADRANTS. PATIENT IS CONTINENT OF B/B. PLAN OF CARE DISCUSSED. SAFETY PRECAUTIONS IN PLACE. ISOLATION PRECAUTIONS OBSERVED BY ALL STAFF. CALL LIGHT WITHIN REACH AT ALL TIMES.
--- NOTE | 2020-08-17 21:30 | NUR ---
PATIENT RESTING COMFORTABLY IN BED, TALKING TO FAMILY ON THE PHONE. NO S/S RESPIRATORY DISTRESS. NO C/O PAIN. NO S/S ACUTE DISTRESS. SAFETY PRECAUTIONS IN PLACE. ISOLATION PRECAUTIONS OBSERVED BY ALL STAFF. CALL LIGHT WITHIN REACH AT ALL TIMES.
--- NOTE | 2020-08-17 23:15 | NUR ---
PATIENT IS ASLEEP. NO S/S RESPIRATORY DISTRESS. NO S/S ACUTE DISTRESS. SAFETY PRECAUTIONS IN PLACE. ISOLATION PRECAUTIONS OBSERVED BY ALL STAFF. CALL LIGHT WITHIN REACH AT ALL TIMES.
[2020-08-18] VITALS: BP 122/78
--- NOTE | 2020-08-18 01:22 | NUR ---
MADE ROUNDS. PATIENT IS ASLEEP. NO S/S ACUTE DISTRESS. SAFETY PRECAUTIONS IN PLACE. ISOLATION PRECAUTIONS OBSERVED. CALL LIGHT WITHIN REACH.
--- NOTE | 2020-08-18 03:12 | NUR ---
PATIENT IS ASLEEP. NO S/S ACUTE DISTRESS. NO S/S RESPIRATORY DISTRESS. SAFETY PRECAUTIONS IN PLACE. ISOLATION PRECAUTIONS OBSERVED BY ALL STAFF. CALL LIGHT WITHIN REACH AT ALL TIMES.
--- NOTE | 2020-08-18 05:01 | NUR ---
PATIENT IS ASLEEP WITH NO S/S RESPIRATORY DISTRESS. NO S/S ACUTE DISTRESS. SAFETY PRECAUTIONS IN PLACE. ISOLATION PRECAUTIONS OBSERVED. FREQUENT ROUNDS BY ALL STAFF. CALL LIGHT WITHIN REACH AT ALL TIMES.
--- NOTE | 2020-08-18 07:25 | NUR ---
ENDORSED TO AM SHIFT NURSE FOR CONTINUITY OF CARE.
--- NOTE | 2020-08-18 07:26 | NUR ---
RECEIVED REPORT FROM BLOCK PILER RN FOR CONTINUITY OF CARE. PATIENT AAOX4. AMBULATORY. PATIENT IS ON 10L OXYGEN VIA NC WITH HUMIDIFIER. DROPLET PRECAUTION FOR COVID. SAFETY MEASURES IN PLACE, WILL CONTINUE TO MONITOR.
[2020-08-18 08:00] VITALS: BP 110/73
[2020-08-18] MEDS: DEXAMETHASONE 4 MG/ML VIAL IM SCH (09:23)
--- NOTE | 2020-08-18 09:26 | NUR ---
SCHEDULED MEDICATION GIVEN, EDUCATION PROVIDED, PATIENT TOLERATED WELL. DENIES PAIN OR DISCOMFORT, WILL CONTINUE TO MONITOR.
--- NOTE | 2020-08-18 14:22 | NUR ---
PATIENT RESTING IN BED WITH 10L OXYGEN VIA NC WITH HUMIDIFIER. O2 SAT 90%. HR 96. OFFERED WATER. PATIENT KEPT COMFORTABLE. PATIENT'S FAMILY WILL CHECK ON HIM THROUGH THE WINDOW LATER, PER PATIENT.
[2020-08-18 16:00] VITALS: BP 123/74
--- NOTE | 2020-08-18 16:18 | NUR ---
PATIENT TALKING OVER THE PHONE. O2 SAT 94% WITH 10L OXYGEN VIA NC, DECREASED O2 SAT TO 8L. O2 SAT REMAIN 94%, WILL CONTINUE TO MONITOR.
--- NOTE | 2020-08-18 17:46 | NUR ---
PATIENT SITTING IN BED DENIES DISCOMFORT. O2 SAT 95% WITH 8L VIA NC. DECREASED TO 7L. PATIENT TOLERATED WELL, WILL CONTINUE TO MONITOR.
--- NOTE | 2020-08-18 18:32 | NUR ---
PATIENT TOLERATED 7L OXYGEN VIA NC WELL, O2 SAT 92-93%. ENCOURAGED PATIENT TO KEEP USING INCENTIVE SPIROMETER, PATIENT VERBALIZED UNDERSTANDING.
--- NOTE | 2020-08-18 19:12 | NUR ---
ENDORSED PATIENT TO RADIO COMMUNICATIONS SUPERINTENDENT RN FOR CONTINUITY OF CARE. PATIENT'S O2 SAT 95% ON 7L NC WITH HUMIDIFIER, HR 83.
[2020-08-18 22:07] VITALS: BP 129/77
[2020-08-19] VITALS: BP 135/75
--- NOTE | 2020-08-19 01:47 | NUR ---
PT IS SLEEPING WELL , NO PAIN VSS SR
--- NOTE | 2020-08-19 05:16 | NUR ---
PT SLEPT WELL , NO PAIN , VS ,SR
--- NOTE | 2020-08-19 07:22 | NUR ---
RECEIVED REPORT FROM TOOL DISPATCHER RN FOR CONTINUITY OF CARE. PATIENT RESTING IN BED AWAKE, AAOX4. DENIES PAIN OR DISCOMFORT WITH 9L OXYGEN VIA NC WITH HIGH FLOW BUBBLE HUMIDIFIER. SAFETY MEASURES IN PLACE, WILL TRY TO WEAN OFF THE OXYGEN IF PATIENT TOLERATE WELL.
[2020-08-19 08:00] VITALS: BP 109/53
[2020-08-19] MEDS: DEXAMETHASONE 4 MG/ML VIAL IM SCH (09:36)
--- NOTE | 2020-08-19 09:38 | NUR ---
SCHEDULED MEDICATION DECADRON GIVEN VIA IVP, EDUCATION PROVIDED, PATIENT ON 7L O2 VIA NC WITH HUMIDIFIER. O2 SAT 93%, DENIES SOB AT THIS TIME. WILL CONTINUE TO MONITOR.
[2020-08-19] MEDS ORDERED: BENZONATATE 100 MG CAPLF PO PRN (10:10)
[2020-08-19] MEDS ORDERED: ASCORBIC ACID 500 MG TAB PO SCH (10:21)
[2020-08-19] MEDS ORDERED: ZINC SULF 220 MG CAP PO SCH (10:22)
[2020-08-19] MEDS ORDERED: APIXABAN 2.5 MG TAB PO SCH (10:23)
[2020-08-19 10:33] LABS: BASOPHILS % (AUTO) 0.4 % (0.0-2.0); EOSINOPHILS # (AUTO) 0.1 K/uL (0-0.4); EOSINOPHILS % (AUTO) 1.3 % (0.0-4.0); HEMATOCRIT 39.2 % (36-52); HEMOGLOBIN 13.1 g/dL (12.0-18.0); LYMPHOCYTES # (AUTO) 0.6 K/uL (2.0-11.5); LYMPHOCYTES % (AUTO) 5.7 % (20.5-51.1); MEAN CORPUSCULAR HEMOGLOBIN 27 pg (27-31); MEAN CORPUSCULAR HGB CONC 33 g/dL (33-37); MEAN CORPUSCULAR VOLUME 81.6 fL (80-94); MONOCYTES # (AUTO) 0.4 K/uL (0.8-1.0); MONOCYTES % (AUTO) 3.8 % (1.7-9.3); NEUTROPHILS # (AUTO) 9.2 K/uL (1.8-7.7); NEUTROPHILS % (AUTO) 88.8 % (42.2-75.2); PLATELET COUNT (AUTO) 207 K/uL (140-450); RED CELL DISTRIBUTION WIDTH 14.3 % (11.6-13.7); WHITE BLOOD COUNT (AUTO) 10.4 K/uL (4.8-10.8)
--- NOTE | 2020-08-19 10:38 | NUR ---
UPDATED PATIENT'S CONDITION WITH PATIENT'S DAUGHTER. PATIENT ON 7L OXYGEN VIA NC, O2 SAT 95%. ALL QUESTIONS ANSWERED.
[2020-08-19 10:52] LABS: ALBUMIN 2.6 g/dL (3.4-5.0); ANION GAP 10.2 (8-16); CARBON DIOXIDE 27.7 mmol/L (21-32); POTASSIUM 3.9 mmol/L (3.5-5.1); TOTAL BILIRUBIN 0.5 mg/dL (0.0-1.0)
--- NOTE | 2020-08-19 11:10 | NUR ---
INFORMED DR. OLGUIN REGARDING CT OF CHEST RESULT OF POSSIBLE LEFT UPPER RENAL MASS. RADIOLOGIST RECOMMEND ULTRASOUND KIDNEY FOR FURTHER EVALUATION. DR. OLGUIN STATED THAT HE WILL TAKE A LOOK.
--- NOTE | 2020-08-19 11:26 | NUR ---
AWAKE AND ALERT VERBALLY RESPONSIVE TO QUOTATION CLERK SITTING UP IN CHAIR GOOD CHEST RISE SATURATION 96% ON SUPPLEMENTAL OXYGEN AT 7 LPM VIA HIGH FLOW BUBBLE HUMIDIFIER TITRATED FIO2 TO 6 LPM QUOTATION CLERK TO TITRATE TOLERATED AND NOTIFY DAY/RN
--- NOTE | 2020-08-19 11:35 | NUR ---
AWAKE AND ALERT RESPONSIVE TO MANAGER HIGHWAY VERBAL CONVERSATION NO INDICATIONJ OF SOB NOTED GOOD CHEST RISE REMAINS SITTING IN CHAIR SATURATION 95% ON SUPPLEMENTAL OXYGEN AT 6 LPM VIA HIGH FLOW BUBBLE HUMIDIFIER (STERILE WATER LEVEL ADEQUATE) TITRATED FIO2 TO [address] TO MONITOR AND TITRATE MANA[address] HIGHWAY TO NOTIFY DAY/RN
--- NOTE | 2020-08-19 11:45 | NUR ---
TOLERATED INCENTIVE SPIROMETRY THERAPY WELL WITHOUT COMPLICATIONS EDUCATION PROVIDED ENCOURAGED PATIENT WOTH ACKNOWLEDGEMENT TO USE INCENTIVE SPIROMETRY X 10 BREATH EVERY 1-2 HOURS
--- NOTE | 2020-08-19 13:52 | NUR ---
PATIENT'S O2 SAT 95% WITH 6L VIA NC, DECREASE TO 5L, WILL RECHECK AND SEE HOW PATIENT TOLERATE.
--- NOTE | 2020-08-19 15:20 | NUR ---
PATIENT RESTING IN BED AND WATCHING HIS CELLPHONE. O2 SAT 98% WITH 5L OXYGEN NC WITH HUMIDIFIER. PATIENT STATED THAT HE IS DOING GOOD. WILL CONTINUE TO MONITOR.
[2020-08-19 16:00] VITALS: BP 119/74
--- NOTE | 2020-08-19 19:28 | NUR ---
ENDORSED PATIENT TO PLASTER FORM MAKER RN FOR CONTINUITY OF CARE, PATIENT IN STABLE CONDITION WITH 5L OXYGEN VIA NC WITH BUBBLE HUMIDIFIER. O2 SAT 93-96%, HR 85.
--- NOTE | 2020-08-19 19:30 | NUR ---
RECEIVED REPORT FROM DAY RN MIGUEL ÁNGEL. PT AOX4 ON 5L NC, O2 SAT 93%. NO S/S RESPIRATORY DISTRESS. NO C/O PAIN AT THIS TIME. IV SITE LFA 22G PATENT INTACT, S.L. SAFETY MEASURES IN PLACE. CALL LIGHT WITHIN REACH. WILL CONTINUE TO MONITOR
[2020-08-19 20:00] VITALS: BP 101/51
[2020-08-19] MEDS: APIXABAN 2.5 MG TAB PO SCH (20:02)
--- NOTE | 2020-08-19 20:05 | NUR ---
ADMINISTERED SCHEDULED MEDICATION. EDUCATION PROVIDED. NO DISTRESS NOTED. BED IN LOWS POSITION. CALL LIGHT WITHIN REACH. WILL CONTINUE TO MONITOR
--- NOTE | 2020-08-19 20:32 | NUR ---
PT CURRENTLY ON 5LNC SPO2 94% HR 83. PT DENIES SOB WITH 0 DISTRESS NOTED WILL CONTINUE TO MONITOR
--- NOTE | 2020-08-19 21:45 | NUR ---
PATIENT AWAKE RESTING IN BED. 5L NC IN PLACE. O2 SAT 93%, DENIES DISCOMFORT. DENIES SOB. NO DISTRESS NOTED. CALL LIGHT WITHIN REACH. WILL CONTINUE TO MONITOR
--- NOTE | 2020-08-19 23:02 | NUR ---
TITRATED PATIENT FROM 5L NC TO 3L NC, O2 SAT 97%. DENIES SOB. NO DISTRESS NOTED. CALL LIGHT WITHIN REACH. WILL CONTINUE TO MONITOR
--- NOTE | 2020-08-19 23:22 | NUR ---
PT RESTING IN BED. O2 SAT 98% ON 3L NC, DENIES SOB. NO DISTRESS NOTED. CALL LIGHT WITHIN REACH. WILL CONTINUE TO MONITOR
--- NOTE | 2020-08-20 00:16 | NUR ---
PT ASLEEP IN BED. O2 SAT 95% ON 3L NC, RESPIRATIONS EVEN UNLABORED. NO DISTRESS NOTED. CALL LIGHT WITHIN REACH. WILL CONTINUE TO MONITOR
--- NOTE | 2020-08-20 01:30 | NUR ---
PT SLEEPING COMFORTABLY ON 3LNC W/ 0 DISTRESS NOTED. CURRENT SPO2 96% HR 95, WILL CONTINUE TO MONITOR APPROX 22:53 FIO2 TITRATED FROM 5L TO 3LNC. PT LYNDA WELL SPO2 94% POST TITRATION (10 MIN AFTER)
--- NOTE | 2020-08-20 02:06 | NUR ---
PT ASLEEP IN BED. O2 SAT 96% ON 3L NC, RESPIRATIONS EVEN UNLABORED. NO DISTRESS NOTED. CALL LIGHT WITHIN REACH. WILL CONTINUE TO MONITOR
--- NOTE | 2020-08-20 02:57 | NUR ---
PT SLEEPING COMFORTABLY ON 3LNC SPO2 91% HR 77 WILL CONTINUE TO MONITOR
--- NOTE | 2020-08-20 03:49 | NUR ---
PT ASLEEP IN BED. O2 SAT 98% ON 3L NC, RESPIRATIONS EVEN UNLABORED. NO DISTRESS NOTED. CALL LIGHT WITHIN REACH. WILL CONTINUE TO MONITOR
[2020-08-20 04:00] VITALS: BP 131/87
--- NOTE | 2020-08-20 04:47 | NUR ---
PT SLEEPING COMFORTABLY W/ NO DISTRESS NOTED ON 3LNC SPO2 97% HR 64 WILL CONTINUE TO MONITOR
--- NOTE | 2020-08-20 05:57 | NUR ---
PT AMBULATED TO TOILET AND BACK TO BED WITH 3L NC ON, O2 SAT 91%. TOLERATED WELL, DENIES SOB, DENIES DISCOMFORT. O2 SAT INCREASED TO 94% ON 3L NC. NO DISTRESS NOTED. BED IN LOW POSITION. CALL LIGHT WITHIN REACH. WILL CONTINUE TO MONITOR
[2020-08-20 06:24] LABS: BASOPHILS % (AUTO) 0.2 % (0.0-2.0); EOSINOPHILS # (AUTO) 0.1 K/uL (0-0.4); EOSINOPHILS % (AUTO) 0.9 % (0.0-4.0); HEMATOCRIT 35.8 % (36-52); HEMOGLOBIN 12.2 g/dL (12.0-18.0); LYMPHOCYTES # (AUTO) 0.9 K/uL (2.0-11.5); LYMPHOCYTES % (AUTO) 10.5 % (20.5-51.1); MEAN CORPUSCULAR HEMOGLOBIN 27 pg (27-31); MEAN CORPUSCULAR HGB CONC 34 g/dL (33-37); MEAN CORPUSCULAR VOLUME 80.2 fL (80-94); MONOCYTES # (AUTO) 0.5 K/uL (0.8-1.0); MONOCYTES % (AUTO) 5.9 % (1.7-9.3); NEUTROPHILS # (AUTO) 7.1 K/uL (1.8-7.7); NEUTROPHILS % (AUTO) 82.5 % (42.2-75.2); PLATELET COUNT (AUTO) 184 K/uL (140-450); RED BLOOD CELL COUNT(AUTO) 4.47 MIL/uL (4.20-6.10); RED CELL DISTRIBUTION WIDTH 14.3 % (11.6-13.7); WHITE BLOOD COUNT (AUTO) 8.6 K/uL (4.8-10.8)
[2020-08-20 06:26] LABS: ALBUMIN 2.6 g/dL (3.4-5.0); ANION GAP 11.5 (8-16); CARBON DIOXIDE 28.2 mmol/L (21-32); CREATININE 0.9 mg/dL (0.6-1.3); POTASSIUM 4.7 mmol/L (3.5-5.1); TOTAL BILIRUBIN 0.5 mg/dL (0.0-1.0)
--- NOTE | 2020-08-20 07:15 | NUR ---
ENDORSED PATIENT TO DAY RN FOR CONTINUITY OF CARE. PATIENT IS IN STABLE CONDITION
--- NOTE | 2020-08-20 07:17 | NUR ---
RECEIVED REPORT FROM NIGHT NURSE PATIENT IS AAOX4 ON 3LPM NC OXYGEN SATURATION AT 95-99%, AMBULATORY, SKIN INTACT IV INTACT ON LEFT FA SALINE LOCK, USES THE INCENTIVE SPIROMETER, HOME O2 AVAILABLE AT BEDSIDE. SAFETY MEASURES IN PLACE AND CALL LIGHT WITHIN REACH. WILL CONTINUE TO MONITOR.
[2020-08-20] MEDS: APIXABAN 2.5 MG TAB PO SCH (08:06)
[2020-08-20] MEDS: DEXAMETHASONE 4 MG/ML VIAL IM SCH (08:07)
--- NOTE | 2020-08-20 08:20 | NUR ---
SCHEDULED MEDICATION GIVEN CHECK VITAL SIGNS PRIOR TO MEDICATION BP 142/84 CT 82 OXYGEN SATURATION AT 93%. NO DISTRESS NOTED AND DENIES PAIN. WILL CONTINUE TO MONITOR.
[2020-08-20] MEDS ORDERED: ZINC SULF 220 MG CAP PO SCH (09:00)
[2020-08-20] MEDS ORDERED: ASCORBIC ACID 500 MG TAB PO SCH (09:00)
--- NOTE | 2020-08-20 11:55 | NUR ---
OXYGEN LEVEL AT 2LPM NC WITH HUMIDIFIER OXYGEN SATURATION AT 92% AND INCENTIVE SPIROMETRY AT 2000 PAT ABLE TO DO IT 10X NO DISTRESS NOTED.
[2020-08-20] MEDS ORDERED: ZINC220C28 PO (13:09)
[2020-08-20] MEDS ORDERED: VITC500 PO (13:09)
[2020-08-20] MEDS ORDERED: BENZ100C6 PO (13:09)
[2020-08-20] MEDS ORDERED: FAMO-90 PO (13:09)
[2020-08-20] MEDS ORDERED: APIX2.5 PO (13:09)
[2020-08-20] MEDS ORDERED: DEC4 PO (13:09)
--- NOTE | 2020-08-20 15:20 | NUR ---
DISCHARGED INSTRUCTIONS GIVEN TO DAUGHTER PIYUSH AND INSTRUCTED TO CONTINUE MEDICATIONS AND TO FOLLOW UP WITH PCP AFTER 1-2 WEEKS, ENCOURAGED PATIENT TO ISOLATE SELF FOR 2 WEEKS AND TO CONTINUE HAND WASHING AND WEARING OF MASK.ENCOURAGE TO SEEK MEDICAL HELP IN CASE OF EMERGENCY . IV INTACT AND NO BLEEDING, REMOVED ID BANDS, CHANGED PT CLOTHING TO OWN CLOTHES. [facility] ACCOMPANIED BY FAMILY. PT IS STABLE.
== END 2020-08-20 15:20 | disposition home or self-care (01) | DRG 137 ==
LOC: MED 13:11 → MTU 15:32
PROVIDERS: ADMIT Hospitalist; ATTEND Hospitalist
PROC: XW033E5 Introduction of Remdesivir Anti-infective into Peripheral Vein, Percutaneous Approach, New Technology Group 5 (ICD-10-PCS; principal; 2020-08-07)
DX: U07.1 COVID-19 (principal); J96.01 Acute respiratory failure with hypoxia; R65.11 Systemic inflammatory response syndrome (SIRS) of non-infectious origin with acute organ dysfunction; J12.82 Pneumonia due to coronavirus disease 2019; D68.59 Other primary thrombophilia; K75.81 Nonalcoholic steatohepatitis (NASH); R04.2 Hemoptysis; E78.5 Hyperlipidemia, unspecified; I10 Essential (primary) hypertension; E78.00 Pure hypercholesterolemia, unspecified; J98.11 Atelectasis
CPT/HCPCS: 36415; 71045; 71250; 76770; 80048; 80053; 82550; 82553; 82728; 83605; 83735; 83880; 84484; 85025; 85379; 85610; 85730; 86140; 86886; 86900; 86901; 87040; 87081; 87804; 93005; 94003; 96365; 96375; 97110; 97116; 97530; 99291; J0456; J0696; J1100; J2405; J7030; J7060; U0003